=== PATIENT | female | born 1990 | race Caucasian/White ===

== ENCOUNTER 2017-08-12 14:00 | Inpatient (IN) ==
[2017-08-12 16:05] LABS: Basophils % 0.3 % (0.0-0.8); Hematocrit 36.5 VOL% (35.7-47.0); Hemoglobin 12.6 GM/DL (12.0-16.0); Immature Granulocytes % 0.3 %; Immature Granulocytes Absolute 0.02 #; Lymphocytes # 1.8 10*3/uL (1.4-4.0); Lymphocytes % 25.8 % (21.3-54.2); Mean Corpuscular HGB Conc 34.5 GM/DL (32-36); Mean Corpuscular Hemoglobin 30 PG (27-34); Mean Corpuscular Volume 88.2 FL (87-102); Mean Platelet Volume 11.2 FL (9.6-12.0); Monocytes # 0.5 10*3/uL (0.11-0.8); Monocytes % 7.3 % (1.7-12.7); Neutrophils # 4.6 10*3/uL (1.4-7.4); Neutrophils % 66.3 % (38.7-73.9); Platelet Count 196 T/CUMM (130-400); Red Blood Count 4.14 MC/CUMM (3.8-5.5); Red Cell Distribution Width 12.3 % (9.3-17.3)
[2017-08-12 16:43] LABS: Albumin 2.7 G/DL (3.4-5.0); Bilirubin,Total 0.9 MG/DL (0.2-1.0); Calcium 8.7 MG/DL (8.5-10.1); Potassium 3.8 MMOL/L (3.5-5.1); Total Protein 6.5 G/DL (6.4-8.3)
[2017-08-12] MEDS ORDERED: ACETAMINOPHEN 500 MG TABLET PO ONE (22:38)
[2017-08-13] MEDS: LACTATED RINGERS 1,000 ML IV SCH ×3 (06:00→18:53)
[2017-08-13] MEDS ORDERED: FAMOTIDINE 20 MG/2 ML VIAL IV ONE (07:58)
[2017-08-13] MEDS ORDERED: CITRIC ACID/SODIUM CITRATE 30 ML UDCUP PO ONE (07:58)
[2017-08-13] MEDS ORDERED: OXYTOCIN/LR 20 UNIT/1,000 ML BAG IV ONE ×3 (12:11→16:43)
[2017-08-13] MEDS ORDERED: MORPHINE 10 MG/10 ML VIAL ONE (13:33)
[2017-08-13] MEDS ORDERED: fentaNYL 100 MCG/2 ML VIAL ONE (13:33)
--- NOTE | 2017-08-13 14:22 | Anesthesia Post-Op ---
Anesthesia Post OP - Post Ansesthetic Evaluation Patient seen in post op: Yes Resp: within normal limits CV: within normal limits Mental: within normal limits Temp: within normal limits [id number]: within normal limits Nausea and Vomiting: within normal limits Pain: within normal limits
[2017-08-13 15:04] LABS: Apearance,Urine CLEAR (Clear); Bilirubin,Urine Negative (Negative); Blood, Urine Negative (Negative); Glucose,Urine (UA) Negative (Negative); Ketones,Urine 80 mg/dL (Negative); Mucus,Urine Occasional /LPF (Occasional); Nitrite,Urine Negative (Negative); Protein,Urine Negative; RBC,Urine 1 /HPF (0-4); Squamous Epithelial Cell,Urine Occasional /HPF (0-10); Urine Color Yellow (Yellow); Urine Specific Gravity 1.012 (1.001-1.035); Urine Urobilinogen < 2.0 EU/DL (0.2-1.0); WBC,Urine <1 /HPF (0-6)
[2017-08-13] MEDS ORDERED: MAGNESIUM HYDROXIDE SUSP 30 ML UDCUP PO PRN (16:43)
[2017-08-13] MEDS ORDERED: ACETAMINOPHEN 325 MG TABLET PO PRN (16:43)
[2017-08-13] MEDS ORDERED: ONDANSETRON 4 MG/2 ML VIAL IV PRN (16:43)
[2017-08-13] MEDS ORDERED: SIMETHICONE CHEW 80 MG TABLET PO PRN (16:43)
[2017-08-13] MEDS ORDERED: LACTATED RINGERS 1,000 ML IV SCH (17:00)
[2017-08-13] MEDS: IBUPROFEN 800 MG TABLET PO PRN (19:58)
--- NOTE | 2017-08-13 20:38 | History and Physical Update ---
History and Physical Update - Dictation Physical: refer to scanned H&P - Physical Exam Mental Status: alert and oriented Heart: regular rate and rhythm Lung: clear to auscultation Abdomen: within normal limits Vitals: within normal limits History and Physical Changes: Pt admitted on 08/12/17 due to possible spider bite a couple of days ago of right posterior thigh with significant induration of about 9 cm and skin erythema of about 4 cm. Pt admitted for IV abx on 08/12/17 and planned C/S at 39 weeks on 08/13/17. Pt is current on TDap having received it about 2 yrs ago after last delivery. No other changes in her history since last visit.
--- NOTE | 2017-08-13 20:40 | Operative Note ---
Date of procedure: 08/13/17 Pre-op diagnosis: 39 wks, prev C/S x 2 Post-op diagnosis: same Procedure: Repeat Low Transverse Section After informed consent was obtained the patient was taken to the labor and delivery OR where she was placed in supine position with left lateral tilt after administration of the subarachnoid block by members of the anesthesia department. The patient was then sterilely prepped and draped in the usual customary fashion. A Lee catheter was placed to bedside drainage. After assuring adequacy of the subarachnoid block a low transverse skin incision was made with excision of the old cicatrix. Incision was carried through the subcutaneous tissue and Dominick's fascia to the anterior rectus fascia. Rectus muscles are bifurcated in the midline. Extensive fibrosis was encountered c/w pt 's hx of prior surgery. Peritoneum was carefully entered. A bladder flap was created. The bladder blade was place in the bladder flap. A low transverse myotomy incision was then performed. Uterine cavity was entered with careful dissection. The infant was found in the cephalic presentation and delivered by the usual cephalic delivery technique without difficulty. The baby was bulb suctioned on the operative field. The cord was doubly clamped and cut. The was handed to personnel in attendance. Cord blood was collected. The placenta was manually extracted and sent to pathology for evaluation. The uterus is brought out of the abdominal cavity onto the abdominal wall. Uterine cavity was gently curetted with a moistened lap sponge. The cervix was noted to be dilated. Myotomy incision was repaired with a running interlocking stitch of 0 chromic suture from left to right and from right to left. After assuring adequate myotomy closure the adnexa were inspected and found to be without evidence pathology. The abdominal gutters were irrigated with normal saline. Uterus was carefully replaced into the abdominal cavity. The myometrium incision was again inspected. It was found to be hemostatic. Peritoneum was closed with a running stitch of 3-0 Vicryl. Rectus muscles were noted be hemostatic. The fascia was closed in running fashion from left right and from right to left with 0 Vicryl suture. The sutures tied securely at the midline. Adequate fascial closure was assured. Dominick's fascia was reapproximated with a running stitch of 3-0 Vicryl. Skin edges were reapproximated with surgical surgical steel carolin. The wound was sterilely cleansed and dressed in the usual and customary fashion. Patient tolerated the procedure well and was transferred to recovery in stable condition. Anesthesia: spinal Surgeon / Physician: Celi Ashton Estimated blood loss: other (600cc) Specimens: other (placenta to path; cord blood to lab) Condition: stable Disposition: PACU Results - Labs CBC & BMP: 08/12/17 15:56 08/12/17 15:56 Discharge Plan - Discharge Medications No Action No Known Home Medications [No Known Home Medications] - Follow Up or Referral - Forms/Instructions
--- NOTE | 2017-08-14 07:10 | OB/GYN Progress Note ---
Assessment and Plan (1) delivery delivered Status: Acute Assessment and plan: Routine and postop care Current Visit: Yes HOSIERY MATER - PN: Subj Interval history: POD#1 Doing well. Exam HOSIERY MATER - Constitutional Vitals: Vital Signs Temp Pulse Resp BP 08/14/17 06:00 18 08/14/17 05:00 18 08/14/17 04:00 18 08/14/17 03:00 18 08/14/17 02:00 18 08/14/17 01:00 18 08/14/17 00:00 18 08/13/17 23:00 18 08/13/17 22:00 18 08/13/17 21:00 18 08/13/17 20:00 20 08/13/17 19:52 98.6 F 08/13/17 17:22 79 20 146/80 08/13/17 16:00 98.8 F 85 19 136/67 08/13/17 12:00 97.5 F L 65 17 108/64 08/13/17 08:00 98.4 F 81 20 143/81 General appearance: normal weight, no acute distress - Head Head exam: Present: normal inspection, normocephalic - Eye Eye exam: Present: EOMI - Respiratory Respiratory exam: Present: clear to auscultation bilaterally - Cardiovascular Cardiovascular exam: Present: regular rate and rhythm - GI/Abdominal GI/Abdominal exam: Present: soft (fundus firm, nontender. Incision intact without E/I/D) - Extremities Exam Extremities exam: Present: normal inspection - Neurological Exam Neurological exam: Present: alert, oriented X3, normal gait - Psychiatric Psychiatric exam: Present: normal affect, normal mood - Skin Skin exam: Present: normal color, warm Results - Labs CBC & BMP: 08/12/17 15:56 08/12/17 15:56 Lab Results: I have reviewed the past 24 hour labs
--- NOTE | 2017-08-14 07:12 | Discharge Summary ---
Hospital Course - Hospital Course Hospital Course: Admitted 08/12/17 with right posterior thigh cellulitis p presumed spider bite. IV abx started. Pt underwent Repeat LTCS on 08/13/17 without complications. Her course was unremarkable except that she did very well. Diagnosis - Discharge Diagnosis (1) delivery delivered Status: Acute Discharge Plan - Discharge Data Disposition: Disch To Home/Self Care Condition at Discharge: Stable Discharge Diet: regular diet Activity: other (pelvic rest x 6 wks) Hygiene: may shower Weight Bearing at Discharge: full weight bearing Driving: not until seen by doctor Contact your physician if you experience:: fever over 101, Difficulty voiding, Redness or swelling, Nausea/Vomiting, Shortness of breath, Bleeding, pain uncontrolled by pain medications - Discharge Medications New cephALEXin [Keflex] 500 mg PO Q6HR #28 capsule HYDROcodone/ACETAMIN 5-325 [Parmelee 5-325] 1 tablet PO Q6H PRN #30 tablet PRN Reason: Pain Moderate (4-7) Ibuprofen Tab [Motrin Tab] 800 mg PO Q8H PRN #30 tablet PRN Reason: Pain Severe (8-10) - Follow Up or Referral Follow Up: Celi Ashton DO [Physician] - (as scheduled) - Forms/Instructions Exam - Constitutional Vitals: Period Temp Pulse Resp BP Sys/Bullock Pulse Ox Last 24 Hr 97.5 F-98.8 F 65-85 17-20 108-146/64-81 General appearance: normal weight, no acute distress - Head Head exam: Present: normal inspection, normocephalic - Eye Eye exam: Present: EOMI - Respiratory Respiratory exam: Present: clear to auscultation bilaterally - Cardiovascular Cardiovascular exam: Present: regular rate and rhythm - GI/Abdominal GI/Abdominal exam: Present: soft (fundus firm, nontender, incision intact without E/I/D) - Extremities Exam Extremities exam: Present: normal inspection - Neurological Exam Neurological exam: Present: alert, oriented X3 - Psychiatric Psychiatric exam: Present: normal affect, normal mood - Skin Skin exam: Present: normal color, warm Discharge Results Labs on day of discharge: Labs from last 24 hours 08/13/17 13:05 Urine Color Yellow Urine Appearance Clear Urine pH 7.0 Ur Specific [place] 1.012 Urine Protein Negative Urine Glucose (UA) Negative Urine Ketones 80 Urine Blood Negative Urine Nitrate Negative Urine Bilirubin Negative Urine Urobilinogen < 2.0 H Urine Leukocytes Negative Urine RBC 1 Urine WBC <1 Ur Squamous Epith Cells Occasional Urine Mucus Occasional Ur Culture Indicated? Not indicated DS: Provider Date of admission: 08/12/17 15:13 Primary care physician: Sheela Patel MD Attending physician on admission: Celi Ashton DO Consults: 08/13/17 06:00 Consult to Anesthesiology [CONS] Routine Consulting Provider: Reason for Anesthesiology: Pre-op Clearance 08/13/17 07:58 Consult to Anesthesiology [CONS] Routine Consulting Provider: Reason for Anesthesiology: Pre-op Clearance 08/13/17 16:44 Consult to Systems Coordinator [CONS] Routine Consult Systems Coordinator: Breast Feeding Discharging clinician: Celi Ashton DO Expected date of discharge: 08/15/17
[2017-08-14 09:25] LABS: Basophils % 0.1 % (0.0-0.8); Hematocrit 29.9 VOL% (35.7-47.0); Immature Granulocytes % 0.4 %; Immature Granulocytes Absolute 0.03 #; Lymphocytes # 1.1 10*3/uL (1.4-4.0); Lymphocytes % 15.4 % (21.3-54.2); Mean Corpuscular HGB Conc 34.8 GM/DL (32-36); Mean Corpuscular Hemoglobin 31 PG (27-34); Mean Corpuscular Volume 88.2 FL (87-102); Mean Platelet Volume 10.8 FL (9.6-12.0); Monocytes # 0.4 10*3/uL (0.11-0.8); Monocytes % 6.2 % (1.7-12.7); Neutrophils # 5.4 10*3/uL (1.4-7.4); Neutrophils % 77.9 % (38.7-73.9); Platelet Count 158 T/CUMM (130-400); Red Blood Count 3.39 MC/CUMM (3.8-5.5); Red Cell Distribution Width 12.8 % (9.3-17.3); White Blood Count 6.9 T/CUMM (4-12)
[2017-08-14 09:30] LABS: Hemoglobin 10.4 GM/DL (12.0-16.0)
[2017-08-14] MEDS: DOCUSATE SODIUM 100 MG CAPSULE PO SCH ×2 (10:05→21:21)
[2017-08-14] MEDS: MULTIVITAMIN (PRENATAL) TABLET PO SCH (10:05)
[2017-08-14] MEDS: cephALEXin 500 MG CAPSULE PO SCH ×3 (11:39→23:50)
[2017-08-14] MEDS: IBUPROFEN 800 MG TABLET PO PRN (17:43)
[2017-08-15] MEDS: IBUPROFEN 800 MG TABLET PO PRN ×2 (06:42→18:39)
[2017-08-15] MEDS: cephALEXin 500 MG CAPSULE PO SCH ×3 (06:42→17:54)
[2017-08-15] MEDS: DOCUSATE SODIUM 100 MG CAPSULE PO SCH ×2 (08:52→20:41)
[2017-08-15] MEDS: MULTIVITAMIN (PRENATAL) TABLET PO SCH (08:52)
[2017-08-15] MEDS ORDERED: cephALEXin 500 MG CAPSULE PO ONE (12:00)
--- NOTE | 2017-08-15 12:17 | Pathology Report from [facility] ---
[facility] [place] ACCESSION # : [id number] PATIENT NAME : Jackelyn Swenson ORDERING DR : MARLO MG DO CLINICAL HX: IUP # 39 wks gestation, previous C/S x 2 POST-OP DX: Same SPECIMEN INFO: Placenta GROSS DESCRIPTION: Received fresh labeled with the patients name and consists of a 565 gram placenta which measures 17.6 x 16.1 cm x up to 2.6 cm. membranes are baptiste, translucent with areas of adherent blood. The umbilical cord is pericentrally inserted, contains three vessels and measures 44.1 cm. surface is dark blue-guillen with an area of moderate fibrin present. The maternal surface is hemorrhagic with mildly disrupted cotyledons with scattered adherent clotted blood with no gross abnormalities on sectioning. Sections submitted: A membranes and cord, B and maternal surfaces. DIAGNOSIS FOR JACKELYN SWENSON: Three vessel umbilical cord.Unremarkable placental membranes. Unremarkable third trimester placental chorionic villi with focal subchorionic fibrin deposition. COLLECTED DATE: 08/14/2017 [facility] REPORT DATE: 08/15/2017 ELECTRONICALLY SIGNED BY: Shane Carmona M.D. 08/15/2017 - 10:15:10 [facility]
--- NOTE | 2017-08-15 14:21 | OB/GYN Progress Note ---
Assessment and Plan (1) delivery delivered Status: Acute Assessment and plan: Supportive care, probable discharge tomorrow. Current Visit: Yes REIMBURSEMENT REPRESENTATIVE - PN: Subj Interval history: Patient complains of difficulty ambulating and breast-feeding due to abdominal pain and does not feel ready at home. Symptoms are mostly presently breast- feeding. Exam REIMBURSEMENT REPRESENTATIVE - Constitutional Vitals: Vital Signs Temp Pulse Resp BP Pulse Ox 08/15/17 12:00 98.4 F 86 16 128/68 96 08/15/17 07:23 98.1 F 92 H 20 131/80 98 08/15/17 06:36 18 08/15/17 05:00 17 08/15/17 04:00 98.7 F 96 H 18 126/81 96 08/15/17 03:00 18 08/15/17 02:00 18 08/15/17 01:00 20 08/15/17 00:00 97.6 F 89 18 134/93 97 08/14/17 20:00 97.2 F L 95 H 22 134/81 97 08/14/17 15:47 98 F 97 H 20 130/79 98 General appearance: no acute distress - Head Head exam: Present: normal inspection - Neck Neck exam: Present: normal inspection - Respiratory Respiratory exam: Present: clear to auscultation bilaterally. Absent: accessory muscle use - Cardiovascular Cardiovascular exam: Present: regular rate and rhythm - GI/Abdominal GI/Abdominal exam: Present: soft. Absent: distended, tenderness, rebound - Extremities Exam Extremities exam: Present: normal inspection - Back Exam Back exam: Present: normal inspection - Neurological Exam Neurological exam: Present: alert, oriented X3 - Psychiatric Psychiatric exam: Present: normal affect, normal mood - Skin Skin exam: Present: normal color, warm Results - Labs CBC & BMP: 08/14/17 09:15 08/12/17 15:56
[2017-08-16] MEDS: cephALEXin 500 MG CAPSULE PO SCH ×2 (00:48→11:30)
[2017-08-16 07:37] VITALS: BP 137/84
[2017-08-16] MEDS: DOCUSATE SODIUM 100 MG CAPSULE PO SCH ×2 (08:51→08:52)
[2017-08-16] MEDS: MULTIVITAMIN (PRENATAL) TABLET PO SCH (08:51)
== END 2017-08-16 11:35 | disposition home or self-care (01) | DRG 540 ==
LOC: N.LDOUT 14:00 → N.LD 14:07 → N.OB 08-14 08:06
PROVIDERS: ADMIT Obstetrics & Gynecology; ATTEND Obstetrics & Gynecology
PROC: LDCSECT (ICD-10-PCS; 2017-08-13 12:45)